=== PATIENT | female | born 2000 | race Caucasian/White ===

== ENCOUNTER 2023-08-08 10:20 | Emergency (ER) | payer MEDICAID ==
[~2023-08-08] VITALS: Ht 157.5 cm; Wt 56.8 kg
[2023-08-08 10:31] VITALS: O2SAT 100
[2023-08-08 11:09] LABS: BASOPHILS % 0.8 % (0.0-2.0); EOSINOPHILS % 1.4 % (0.0-5.0); HEMATOCRIT. 35.8 % (36.0-48.0); HEMOGLOBIN. 11.9 g/dL (12.0-16.0); LYMPHOCYTES % 21.8 % (20.0-50.0); MEAN CORPUSCULAR HEMOGLOBIN 29.9 pg (28.0-32.0); MEAN CORPUSCULAR HGB CONC 33.3 g/dL (31.0-37.0); MEAN CORPUSCULAR VOLUME 89.9 fL (81.0-99.0); MEAN PLATELET VOLUME 10.3 fl (7.4-10.4); MONOCYTES % 8.6 % (2.0-8.0); NEUTROPHILS % 67.4 % (40.0-76.0); PLATELET 246 x1000/uL (130-400); RED BLOOD CELL COUNT 3.98 mill/uL (4.2-5.4); RED CELL DISTRIBUTION WIDTH 13.8 % (11.6-14.6); WHITE BLOOD COUNT 6.1 x1000/uL (4.5-11.0)
[2023-08-08 11:30] LABS: CHLORIDE 111 mEq/L (98-107); POTASSIUM 3.5 mEq/L (3.5-5.1); SODIUM 139 mEq/L (136-145)
[2023-08-08 11:31] LABS: CARBON DIOXIDE 22 mEq/L (21-32)
[2023-08-08 11:36] LABS: CREATININE 0.7 mg/dL (0.6-1.0); GLUCOSE 104 mg/dL (70-105); UREA NITROGEN BLOOD 8 mg/dL (9-23)
[2023-08-08 11:38] LABS: ALANINE AMINOTRANSFERASE 13 IU/L (10-49); ALBUMIN 4.2 g/dL (3.2-4.8); ASPARTATE AMINOTRANSFERASE 17 IU/L (<34); BILIRUBIN DIRECT 0.3 mg/dL (<=3.0); BILIRUBIN TOTAL 0.7 mg/dL (0.1-1.0)
[2023-08-08 11:39] LABS: PROTEIN TOTAL 6.8 g/dL (6.0-8.3)
[2023-08-08 11:59] LABS: HCG SCREEN NEGATIVE
[2023-08-08 12:40] LABS: CLARITY URINE CLEAR (CLEAR); COLOR URINE YELLOW (YELLOW); GLUCOSE URINE NEGATIVE (NEGATIVE); KETONES URINE NEGATIVE (NEGATIVE); LEUKOCYTE ESTERASE URINE 1+ (NEGATIVE); NITRITE URINE NEGATIVE (NEGATIVE); OCCULT BLOOD URINE NEGATIVE (NEGATIVE); PH URINE 6.5 (4.5-8.0); PROTEIN URINE NEGATIVE (NEGATIVE); SPECIFIC GRAVITY URINE 1.016 (1.005-1.030)
[2023-08-08 12:45] LABS: CALCIUM 9.8 mg/dL (8.7-10.4)
[2023-08-08 13:11] LABS: SQUAMOUS EPITHELIAL CELL URINE 2+ /lpf (RARE/1+)
[2023-08-08 13:12] LABS: RBC URINE NONE SEEN /hpf (0-2)
[2023-08-08 13:13] LABS: BACTERIA URINE 1+; MUCUS URINE TRACE /lpf (< = 2+)
[2023-08-08] MEDS: KETOROLAC 60MG/2ML VIAL IM ONE (14:09)
[2023-08-08] MEDS ORDERED: IBUP-2029 MT (14:12)
[2023-08-08 14:41] VITALS: BP 125/71; PULSE 72; RESP 17; TEMP 98.3
== END 2023-08-08 14:42 | disposition home or self-care (01) ==
LOC: ER 10:20
DX: R10.31 Right lower quadrant pain (principal)
CPT/HCPCS: 99284; 74176; 80076; 80048; 81003; 81025; 84703; 85025; 36415; J1885